=== PATIENT | female | born 1960 | race Caucasian/White ===

== ENCOUNTER 2019-03-26 12:11 | Emergency (ER) | payer OTHER ==
[2019-03-26 12:25] VITALS: TEMP 97.2; BMI 27.4
--- NOTE | 2019-03-26 12:30 | PDOC ---
History of Present Illness - General Chief Complaint: Alcohol intoxication Stated Complaint: FALL Time Seen by Provider: 03/26/19 12:30 History Source: Patient - History of Present Illness Initial Comments: 03/26/19 12:43 The patient is a 59 year old female with a PMH of ETOH Abuse and HLD who presents to our ED c/o difficulty ambulating following a fall on Wednesday evening. Patient reports that she was drunk and climbing the spiral staircase in her home when she fell backwards down the stairs hitting her head. Uncertain of LOC. States she has had pain in her lower back while ambulating and new onset of forgetfulness such as forgetting why her friends were coming to visit her. Patient states she has been sober since September however her nephew last week prompting her to start drinking again - states she drank 1 bottle of wine since last week and stopped drinking completely on . NKDA PMD: Dr. Garcia Past History - Past Medical History Allergies/Adverse Reactions: Allergies Allergy/AdvReac Type Severity Reaction Status Date / Time No Known Allergies Allergy Verified 04/19/14 08:51 Home Medications: Ambulatory Orders Evolocumab [Repatha Syringe] 140 mg SQ ASDIR 03/26/19 Sertraline HCl [Zoloft -] mg PO DAILY 03/26/19 COPD: No GI Disorders: Yes (DIVERTICULITIS) Hypercholesterolemia: Yes Psychiatric Problems: Yes (alcoholism) - Immunization History Immunization Up to Date: Yes - Suicide/Smoking/Psychosocial Hx Smoking Status: No Smoking History: Never smoked Have you smoked in the past 12 months: No Number of Cigarettes Smoked Daily: 0 If you are a former smoker, when did you quit?: 1988 Information on smoking cessation initiated: No Hx Alcohol Use: No Drug/Substance Use Hx: No Substance Use Type: None Hx Substance Use Treatment: No Review of Systems - Review of Systems Constitutional: No: Chills, Fever HEENTM: No: Recent change in vision Respiratory: No: Cough, Shortness of Breath Cardiac (ROS): No: Chest Pain, Lightheadedness, Palpitations, Syncope ABD/GI: No: Constipated, Diarrhea, Nausea, Poor Fluid Intake, Vomiting : No: Burning, Dysuria Neurological: Yes: Unsteady Gait, Other Psychiatric: Yes: Stressors *Physical Exam - Vital Signs Last Vital Signs Temp Pulse Resp BP Pulse Ox 97.2 F L 80 20 128/87 95 03/26/19 12:21 03/26/19 12:21 03/26/19 12:21 03/26/19 12:21 03/26/19 12:21 - Physical Exam General Appearance: Yes: Nourished, Appropriately Dressed HEENT: positive: Normal Voice, Hearing Grossly Normal Neck: positive: Supple, Decreased range of motion Respiratory/Chest: positive: Lungs Clear, Normal Breath Sounds Cardiovascular: positive: S1, S2. negative: Edema, JVD Vascular Pulses: Dorsalis-Pedis (R): 2+, Doralis-Pedis (L): 2+ Gastrointestinal/Abdominal: positive: Normal Bowel Sounds, Soft Extremity: positive: Normal Capillary Refill, Normal Inspection, Pelvis Stable Integumentary: positive: Normal Color, Dry, Warm ED Treatment Course - LABORATORY CBC & Chemistry Diagram: 03/26/19 12:59 03/26/19 12:59 Medical Decision Making - Medical Decision Making 03/26/19 12:50 59 year old female s/p intoxicated fall down a spiral staircase with possible head trauma, unknown LOC earlier this week. C/o coccyx pain, requesting librium for withdrawal symptoms (last drink 48 hours previous). Will consider [facility] for detox. VS unremarkable Will CT head to r/o subdural bleed, CT spine pending w/C-spine precautions in place. Basic labs. Reassess. 03/26/19 15:20 CBC, CMP unremarkable including normal transaminases Lumbar/Sacral negative [facility] states female alcohol detox beds currently available 03/26/19 17:[address] negative C-spine sent to Imaging vibration analyst Patient requesting d/c home, states she needs to make arrangements for care of her 90 year old mother who lives with her and her dogs before seeking alcohol detox. 03/26/19 18:04 C-spine negative 03/26/19 18:11 Patient reassessed @ bedside, has been ambulatory around the ED w/o pain. Again refusing detox. Will discharge home with return precautions. I discussed the physical exam findings, ancillary test results and final diagnoses with the patient. I answered all of the patient's questions. The patient was satisfied with the care received and felt comfortable with the discharge plan and treatment plan. The patient will return to the Emergency Department with any new, persistent or worsening symptoms. *DC/Admit/Observation/Transfer Diagnosis at time of Disposition: Fall - Discharge Dispostion Disposition: HOME Condition at time of disposition: Fair Decision to Admit order: No - Referrals Referrals: Wm Garcia MD [Staff Physician] - - Patient Instructions Printed Discharge Instructions: DI for Alcohol Abuse Additional Instructions: Please call [facility] at should you wish to receive assistance with alcohol cessation. You can take Motrin (up to 3200 mg daily) alternating with Tylenol (up to 4000 mg daily) every 4-6 hours for the next 5 days for your pain. Follow-up with Dr. Garcia in the next 3 days, he can provide you a prescription for Librium. Return to the Emergency Department for any new/worsening/concerning symptoms. - Post Discharge Activity Forms/Work/School Notes: Back to Work
[2019-03-26] MEDS ORDERED: chlordiazePOXIDE HCL 25 MG CAPSULE PO ONE (12:40)
[2019-03-26] MEDS ORDERED: SODIUM CHLORIDE 0.9% 500 ML INFUS.BAG IV ONE (12:41)
[2019-03-26] MEDS ORDERED: ONDANSETRON 4 MG/2 ML VIAL IVPUSH ONE (12:57)
[2019-03-26] MEDS ORDERED: THIAMINE HCL 100 MG TABLET (FP) PO ONE (12:57)
[2019-03-26] MEDS ORDERED: FOLIC ACID 1 MG TABLET (FP) PO ONE (12:57)
[2019-03-26] MEDS ORDERED: ONDANSETRON 4 MG/2 ML VIAL ONE (13:07)
[2019-03-26] MEDS ORDERED: chlordiazePOXIDE HCL 25 MG CAPSULE ONE (13:16)
[2019-03-26 13:17] LABS: BASO % 0.5 % (0-2.0); EOS % 0.8 % (0-4.5); HEMATOCRIT 42.3 % (32.4-45.2); HEMOGLOBIN 14.4 GM/dL (10.7-15.3); LYMPH % 13.7 % (8-40); MCH 30.7 pg (25.7-33.7); MEAN CELL VOLUME 90.2 fl (80-96); MEAN PLT VOLUME 7.1 fl (7.5-11.1); MONO % 7.5 % (3.8-10.2); NEUT % 77.5 % (42.8-82.8); RBC 4.69 M/mm3 (3.60-5.2); RDW 14.9 % (11.6-15.6); WHITE BLOOD COUNT 5.7 K/mm3 (4.0-10.0)
[2019-03-26] MEDS ORDERED: FOLIC ACID 1 MG TABLET (FP) ONE (13:17)
[2019-03-26] MEDS ORDERED: THIAMINE HCL 100 MG TABLET (FP) ONE (13:17)
[2019-03-26 13:29] LABS: PLATELET COUNT 226 K/MM3 (134-434)
[2019-03-26 13:30] LABS: INR 0.99 (0.83-1.09); PROTHROMBIN TIME (PATIENT) 11.7 SEC (9.7-13.0)
[2019-03-26 13:32] LABS: ACTIVATED PTT 32.4 SECONDS (25.2-36.5)
--- NOTE | 2019-03-26 13:34 | PDOC ---
Documentation entered by Nikolai Amado SCRIBE, acting as scribe for Norma Devries DO. Norma Devries DO: This documentation has been prepared by the Aneudy hurley Daniel, SCRIBE, under my direction and personally reviewed by me in its entirety. I confirm that the documentation accurately reflects all work, treatment, procedures, and medical decision making performed by me. Attending Attestation - Resident Resident Name: Senait Marcelino - ED Attending Attestation I have performed the following: I have examined & evaluated the patient, The case was reviewed & discussed with the resident, I agree w/resident's findings & plan, Exceptions are as noted - HPI HPI: 03/26/19 13:00 The patient is a 59 year old female with a past medical history of alcohol abuse and HLD here today for evaluation of hip pain s/p fall. The patient reports that she stopped drinking 6 years ago but began again on wednesday (03/20/19 ) after recent deaths in the family and wednesday night while she was drunk she fell down a spiral staircase backwards. She notes hip pain that is worse with walking and short term memory loss. She notes hitting her head when she fell and is unsure of any loss of consciousness. She also notes 4 episodes of vomiting. Patient is poor historian. Patient denies lightheadedness. Denies fever, chills. Denies chest pain, shortness of breath. Denies nausea, diarrhea, abdominal pain. Allergies: NKA - Physicial Exam PE: 03/26/19 13:14 Constitutional: +tremulous. Awake, alert, oriented. No acute distress. Head: Normocephalic. Atraumatic Eyes: PERRL. EOMI. Conjunctivae are not pale. ENT: +tongue fasciculation. Mucous membranes are moist and intact. Posterior pharynx without exudates or erythema. Uvula midline. Neck: Supple. Full ROM. No lymphadenopathy. Cardiovascular: Regular rate. Regular rhythm. S1, S2 regular. Distal pulses are 2+ and symmetric. Pulmonary/Chest: No evidence of respiratory distress. Clear to auscultation bilaterally No wheezing, rales or rhonchi. Abdominal: Soft and non-distended. There is no tenderness. No rebound, guarding or rigidity. No organomegaly. No palpable masses. Good bowel sounds. Back: +tenderness at coccyx. No CVA tenderness. Musculoskeletal: No edema. No cyanosis. No clubbing. Full range of motion in all extremities. No calf tenderness. Radial/pedal pulses are intact and 2+ bilaterally Skin: Skin is warm and dry. No petechiae. No purpura. Neurological: Alert and oriented to person, place, and time. Cranial nerves II -XII are grossly intact. Normal speech. Strength is grossly symmetric. No sensory deficits. Psychiatric: Good eye contact. Normal interaction, affect and behavior. No SI or HI. - Medical Decision Making 03/26/19 13:29 I, Dr. Norma Devries, DO, attest that this document has been prepared under my direction and personally reviewed by me in its entirety. I further attest, that it accurately reflects all work, treatment, procedures and medical decision -making performed by me. 03/26/19 13:29 a/p: 59yo female with recent alcohol use disorder (hx of alcohol dependence, was clean for years, but nephew and she started to drink again a week ago) -had been drinking on wednesday when she fell down a flight of spiral stairs -states she continued to drink this week, but continued to drink-unsure when her last drink was -states she feels confused since hte fall, feels off balance, low back pain ( pain at coccyx) and now with mild withdrawal -pt placed in c collar upon arrival -denies neck pain -will send labs, head ct, ct cspine, xrays back -will monitor and reassess -vitamins given, ivf hydration, alcohol withdrawal - will treat nausea, will give librium -mild tongue fasciculations, hand tremors -will monitor and reassess 03/26/19 13:34 resident called [facility]- beds available for alcohol withdrawal and detox pt willing to go to detox to stop drinking 03/26/19 15:41 lumbar spine and hip xray negative for fx 03/26/19 15:41 labs reviewed and stable 03/26/19 16:06 no acute findings on head ct pt has been ambulatory with a steady gait in the ED 03/26/19 16:38 pt has changed her mind about going to [facility] pending ct c spine read 03/26/19 18:[address] negative FROM of the neck stable for dc to home pt denies wanting detox at [facility] Heart Score/ECG Review - ECG Intrepretation Comment:: 03/26/19 15:43 sinus at 60, nl axis, nl interval, t wave inversions v2-3, no acute st changes 03/26/19 15:44 ekg unchanged from prior
[2019-03-26 13:38] LABS: ALBUMIN 3.9 g/dl (3.4-5.0); ALK PHOS 119 U/L (45-117); ANION GAP 9 MMOL/L (8-16); BILIRUBIN,TOTAL 1.1 mg/dL (0.2-1); BLOOD UREA NITROGEN 10.6 mg/dL (7-18); CALCIUM 9.3 mg/dL (8.5-10.1); CHLORIDE 104 mmol/L (98-107); CO2 25 mmol/L (21-32); CREATININE 0.7 mg/dL (0.55-1.3); GLUCOSE,RANDOM 101 mg/dL (74-106); POTASSIUM 3.6 mmol/L (3.5-5.1); SGOT/AST 28 U/L (15-37); SGPT/ALT 38 U/L (13-61); SODIUM 138 mmol/L (136-145); TOT PROT 7.4 g/dl (6.4-8.2)
[2019-03-26 16:49] VITALS: BP 131/77; PULSE 74
--- NOTE | 2019-03-27 09:38 | EKG ---
Test Reason : Blood Pressure : / mmHG Vent. Rate : 060 BPM Atrial Rate : 060 BPM P-R Int : 168 ms QRS Dur : 084 ms QT Int : 418 ms P-R-T Axes : 051 021 031 degrees QTc Int : 418 ms NORMAL SINUS RHYTHM ANTERIOR INFARCT , AGE UNDETERMINED ABNORMAL ECG WHEN COMPARED WITH ECG OF 19-APR-2014 11:28, NO SIGNIFICANT CHANGE WAS FOUND Confirmed by BERTO OSUNA MD ([id number]) on 03/27/2019 9:38:07 AM Referred By: Confirmed By:BERTO OSUNA MD
[2019-03-29 01:52] LABS: MAGNESIUM 2.1 mg/dL (1.8-2.4)
== END 2019-03-26 18:27 | disposition home or self-care (01) ==
LOC: JER 12:11
PROC: 3E033GC Introduction of Other Therapeutic Substance into Peripheral Vein, Percutaneous Approach (ICD-10-PCS; principal; 2019-03-26)
DX: S09.8XXA Other specified injuries of head, initial encounter (principal); M53.3 Sacrococcygeal disorders, not elsewhere classified; W10.8XXA Fall (on) (from) other stairs and steps, initial encounter; Y93.89 Activity, other specified; Y92.098 Other place in other non-institutional residence as the place of occurrence of the external cause; Y99.8 Other external cause status; F10.10 Alcohol abuse, uncomplicated; Y90.0 Blood alcohol level of less than 20 mg/100 ml
CPT/HCPCS: 36415; 70450-TC; 72100-TC-FY; 72125-TC; 72170-TC-FY; 80053; 80307; 83735; 85025; 85610; 85730; 93005; 93010; 99283-25

== ENCOUNTER 2023-08-21 06:13 | Inpatient (IN) | payer OTHER ==
[2023-08-21 06:34] VITALS: BMI 29.0
[2023-08-21] MEDS ORDERED: POLYETHYLENE GLYCOL (HEALTHYLAX) 3350 17 GM PACKET PO PRN (07:24)
[2023-08-21] MEDS ORDERED: ONDANSETRON *ODT* 4 MG TABLET SL PRN (07:24)
[2023-08-21] MEDS ORDERED: DICYCLOMINE HCL 10 MG CAPSULE PO PRN (07:24)
[2023-08-21] MEDS ORDERED: LOPERAMIDE HCL 2 MG CAPSULE PO PRN (07:24)
[2023-08-21] MEDS ORDERED: IBUPROFEN 600 MG TABLET (FP) PO PRN (08:00)
[2023-08-21] MEDS ORDERED: MAG HYDROX/AL HYDROX/SIMETH 30 ML UNIT-DOSE CUP PO PRN (08:00)
[2023-08-21] MEDS ORDERED: BISMUTH SUBSALICYLATE 524 MG/30 ML PO PRN (08:00)
[2023-08-21] MEDS ORDERED: guaiFENesin 600 MG TABLET.ER (FP) PO PRN (08:00)
[2023-08-21] MEDS ORDERED: MAGNESIUM HYDROX 2400MG/30ML ORAL SUSPENSION 30 ML CUP PO PRN (08:00)
[2023-08-21] MEDS ORDERED: NALOXONE HCL 0.4 MG/ML VIAL IM PRN (08:00)
[2023-08-21] MEDS ORDERED: BENZONATATE 200 MG CAPSULE PO PRN (08:00)
[2023-08-21] MEDS ORDERED: IBUPROFEN 400 MG TABLET (FP) PO PRN (08:00)
[2023-08-21] MEDS ORDERED: NALOXONE HCL (KLOXXADO) 8 MG SPRAY NS PRN (08:00)
[2023-08-21] MEDS ORDERED: BENZOCAINE/MENTHOL (CHLORASEPTIC ) LOZENGE MM PRN (08:00)
[2023-08-21] MEDS ORDERED: PRENATAL VITAMINS W/ FOLIC ACID TABLET (FP) PO ONE (08:32)
[2023-08-21] MEDS: PRENATAL VITAMINS W/ FOLIC ACID TABLET (FP) PO SCH (09:43)
[2023-08-21 12:07] LABS: POTASSIUM 3.8 mmol/L (3.5-5.1)
[2023-08-21 12:12] LABS: HEMATOCRIT 42.2 % (32.4-45.2); HEMOGLOBIN 14.4 GM/dL (10.7-15.3); MCH 30.9 pg (25.7-33.7); MEAN CELL VOLUME 91.1 fl (80-96); MEAN PLT VOLUME 7.6 fl (7.5-11.1); PLATELET COUNT 396 10^3/uL (134-434); RBC 4.64 M/mm3 (3.60-5.2); RDW 13.4 % (11.6-15.6); WHITE BLOOD COUNT 8.9 K/mm3 (4.0-10.0)
[2023-08-21 12:16] LABS: CALCIUM 8.3 mg/dL (8.5-10.1)
[2023-08-21 12:17] LABS: ALBUMIN 3.6 g/dl (3.4-5.0); BLOOD UREA NITROGEN 11.9 mg/dL (7-18)
[2023-08-21 12:19] LABS: BILIRUBIN,TOTAL 0.4 mg/dL (0.2-1)
[2023-08-21 12:20] LABS: CREATININE 0.8 mg/dL (0.55-1.3); TOT PROT 7.1 g/dl (6.4-8.2)
[2023-08-21] MEDS ORDERED: LORazepam 0.5 MG TABLET PO PRN (13:11)
[2023-08-21] MEDS ORDERED: LORazepam 1 MG TABLET PO ONE (13:45)
[2023-08-21] MEDS ORDERED: LORazepam 2 MG TABLET PO SCH (17:00)
[2023-08-21] MEDS: LORazepam 1 MG TABLET PO SCH ×2 (17:38→22:22)
[2023-08-21] MEDS: THIAMINE HCL 100 MG TABLET (FP) PO SCH (22:20)
[2023-08-21] MEDS: MELATONIN 5 MG TABLETS PO SCH (22:20)
[2023-08-22] MEDS: LORazepam 1 MG TABLET PO SCH ×4 (05:39→22:10)
[2023-08-22] MEDS: ASPIRIN 81 MG CHEWABLE TABLETS PO SCH (10:13)
[2023-08-22] MEDS: PRENATAL VITAMINS W/ FOLIC ACID TABLET (FP) PO SCH (10:13)
[2023-08-22] MEDS: THIAMINE HCL 100 MG TABLET (FP) PO SCH (22:09)
[2023-08-22] MEDS: MELATONIN 5 MG TABLETS PO SCH (22:09)
[2023-08-23] MEDS: LORazepam 0.5 MG TABLET PO SCH ×4 (04:44→22:31)
[2023-08-23] MEDS: ACETAMINOPHEN 325 MG TABLET (FP) PO PRN ×2 (04:46→17:25)
[2023-08-23] MEDS: ASPIRIN 81 MG CHEWABLE TABLETS PO SCH (09:55)
[2023-08-23] MEDS: PRENATAL VITAMINS W/ FOLIC ACID TABLET (FP) PO SCH (09:55)
[2023-08-23 20:41] VITALS: TEMP 97.6
[2023-08-23] MEDS: THIAMINE HCL 100 MG TABLET (FP) PO SCH (22:30)
[2023-08-23] MEDS: MELATONIN 5 MG TABLETS PO SCH (22:30)
[2023-08-24] MEDS ORDERED: LORazepam 0.5 MG TABLET PO ONE (05:00)
[2023-08-24 05:59] VITALS: BP 115/63; PULSE 71; RESP 18
== END 2023-08-24 08:47 | disposition home or self-care (01) | DRG 897 ==
LOC: YASAS 06:13 → Y6N 07:50
PROVIDERS: ADMIT Allergy & Immunology; ATTEND Surgery
PROC: HZ2ZZZZ Detoxification Services for Substance Abuse Treatment (ICD-10-PCS; principal; 2023-08-21)
DX: F10.230 Alcohol dependence with withdrawal, uncomplicated (principal); F10.220 Alcohol dependence with intoxication, uncomplicated; E78.5 Hyperlipidemia, unspecified; Z87.891 Personal history of nicotine dependence; Z87.19 Personal history of other diseases of the digestive system
CPT/HCPCS: 36415; 80053; 80307; 83036; 85027; 86780; 87635; Q0162